=== PATIENT | female | born 1955 | race Caucasian/White ===

== ENCOUNTER 2017-07-20 19:23 | Emergency (ER) | payer BC ==
[~2017-07-20] VITALS: Ht 157.5 cm; Wt 86.2 kg
--- NOTE | 2017-07-20 20:09 | NUR ---
ARRIVAL PATIENT AMBULATORY TO ROOM 5, CONNECTED TO ALL MONITORS, NURSE AND MD ASSESSMENT COMPLETED.
--- NOTE | 2017-07-20 20:20 | ER.PDOC ---
General Chief Complaint: Extremities Stated Complaint: FALL ARM INJURY Time seen by MD: 20:19 Source: patient History of Present Illness Initial Comments Left wrist pain from a fall Occurred: this afternoon Severity: moderate Context: fall Modifying Factors: pain on movement Allergies: Coded Allergies: Penicillins (Verified Allergy, Intermediate, Hives, 07/20/17) erythromycin base (Verified Allergy, Intermediate, 07/20/17) oxacillin (Verified Allergy, Unknown, 07/20/17) Past Medical History Medical History: no pertinent history LMP (females 10-50): hysterectomy Social History Smoking: non-smoker Alcohol Use: none Drug Use: none Review of Systems Constitutional: no symptoms reported Respiratory: no symptoms reported Cardiovascular: no symptoms reported Gastrointestinal: no symptoms reported Musculoskeletal: see HPI All Other Systems: Reviewed and Negative Physical Exam General Appearance: Alert, No Apparent Distress Hand: nml inspection, non-tender, no evidence FB Wrist: tenderness (left), swelling (left) Vascular: no vascular compromise Tendons: tendon function nml Forearm/Elbow/Arm: uninjured above wrist Head/ENT: nml inspection, pharynx nml Neck/Back: nml inspection, non-tender Resp/CVS: no resp distress, lungs clear, heart sounds nml, reg. rate & rhythm Abdomen: non-tender, no organomegaly EKG/XRAY/CT/US XRAY Comments: No bony abnormality left wrist, soft tissue swelling Departure Time of Disposition: 20:57 Disposition: 01 HOME, SELF-CARE Impression: Primary Impression: Left wrist injury Qualified Codes: S69.92XA - Unspecified injury of left wrist, hand and finger( s), initial encounter Condition: Stable Referrals: PCP,UNKNOWN (PCP) PRIMARY CARE PROVIDER Additional Instructions: Ice Ibuprofen F/U with Dr. Richardson next week EDEN,SHONNA Larkin MD Jul 20, 2017 20:20
--- NOTE | 2017-07-20 20:27 | DIREP ---
PROCEDURE:XRAY WRIST MIN 3VW-LT COMPARISON:None. INDICATIONS:injury, pt fell FINDINGS: BONES:Normal. JOINTS:Narrowing at the triscaphe joint. SOFT TISSUES:Soft tissue swelling dorsally. OTHER:No additional findings. CONCLUSION: 1. Osteoarthritis at the triscaphe joint. 2. Soft tissue swelling over the dorsal wrist. Dictated by: Santana Monterroso M.D. on 07/20/2017 at 08:23 PM
[2017-07-20 21:06] VITALS: BP 132/78
--- NOTE | 2017-07-20 21:06 | NUR ---
UPDATE SOPHY WRAP APPLIED TO PATIENT LEFT WRIST DIRECTED.
== END 2017-07-20 21:00 | disposition home or self-care (01) ==
LOC: ER 19:23
DX: S69.92XA Unspecified injury of left wrist, hand and finger(s), initial encounter (principal); Z88.0 Allergy status to penicillin; Z88.1 Allergy status to other antibiotic agents; W19.XXXA Unspecified fall, initial encounter; Y93.89 Activity, other specified; Y92.89 Other specified places as the place of occurrence of the external cause; Y99.8 Other external cause status
CPT/HCPCS: 99284; 73110-LT